=== PATIENT | male | born 1950 | race Caucasian/White ===

== ENCOUNTER 2021-07-01 19:15 | Emergency (ER) | payer MEDICARE, OTHER, SELFPAY ==
[2021-07-01 19:23] VITALS: BP 160/75; PULSE 72; RESP 20; TEMP 36.8; O2SAT 96
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
[2021-07-02] MEDS: cephALEXin 250 MG CAPSULE 500 MG PO (01:04)
== END 2021-07-02 01:04 | disposition home or self-care (01) ==
PROVIDERS: Emergency Provider Emergency Medicine
DX: L03.012 Cellulitis of left finger (principal)
CPT/HCPCS: 99283